=== PATIENT | male | born 1990 | race Hispanic/Latino ===

== ENCOUNTER 2023-03-01 00:32 | Emergency (ER) | payer OTHER ==
[~2023-03-01] VITALS: Ht 177.8 cm; Wt 84.4 kg
[2023-03-01 01:16] LABS: BASOPHILS % (AUTO) 0.4 % (0.0-5.0); EOSINOPHILS % (AUTO) 1.7 % (0.0-8.0); HEMATOCRIT 40.8 % (42-54); LYMPHOCYTES % (AUTO) 35.9 % (21.0-51.0); MEAN CORPUSCULAR HEMOGLOBIN 31.9 pg (27.0-33.0); MEAN CORPUSCULAR VOLUME 88.5 fL (79-99); MONOCYTES % (AUTO) 7.2 % (3.0-13.0); NEUTROPHILS % (AUTO) 54.4 % (40.0-77.0); PLATELET COUNT (AUTO) 229 K/uL (130-400); RED BLOOD CELL COUNT(AUTO) 4.61 MIL/uL (4.50-6.20); RED CELL DISTRIBUTION WIDTH 11.4 % (11.0-15.5); WHITE BLOOD COUNT (AUTO) 8.5 K/uL (4.8-10.8)
[2023-03-01 01:24] LABS: POTASSIUM 3.5 mmol/L (3.5-5.1)
[2023-03-01 01:29] LABS: ALBUMIN 4.5 g/dL (3.5-5.0); TOTAL PROTEIN, SERUM 7.7 g/dL (6.0-8.3)
[2023-03-01] MEDS ORDERED: MORPHINE 4 MG SYG IVP ONE (01:30)
[2023-03-01] MEDS ORDERED: CEFTRIAXONE 1G VIAL 1 GM in 0.9%NACL 50ML 50 ML IV ONE (01:30)
[2023-03-01] MEDS ORDERED: ONDANSETRON 4MG INJ IVP ONE (01:30)
[2023-03-01] MEDS ORDERED: CEFTRIAXONE 1G VIAL ONE (01:33)
[2023-03-01 01:35] LABS: APPEARANCE,URINE CLEAR (CLEAR); BILIRUBIN,URINE NEGATIVE (NEGATIVE); COLOR,URINE COLORLESS (YELLOW); GLUCOSE, URINE (UA) NEGATIVE (NEGATIVE); KETONES,URINE NEGATIVE (NEGATIVE); LEUKOCYTE ESTERASE ,URINE NEGATIVE Leu/uL (NEGATIVE); NITRATE,URINE NEGATIVE (NEGATIVE); OCCULT BLOOD,URINE NEGATIVE (NEGATIVE); PROTEIN,URINE NEGATIVE (NEGATIVE); UROBILINOGEN,URINE 0.2 mg/dL (0.2-1.0)
[2023-03-01 01:45] LABS: PROTHROMBIN TIME 10.9 SEC (9.6-11.6)
[2023-03-01 01:46] LABS: PARTIAL THROMBOPLASTIN TIME 28.4 SEC (26.3-35.5)
[2023-03-01] MEDS ORDERED: IOHEXOL 350 MG/ML 100ML INFUS..BTL IV ONE (02:09)
[2023-03-01 03:03] VITALS: BP 108/74
[2023-03-01] MEDS ORDERED: HYDR25SU38 RC (03:04)
[2023-03-01] MEDS ORDERED: POLY17PO4 PO (03:04)
== END 2023-03-01 03:20 | disposition home or self-care (01) ==
LOC: EDH 00:32
DX: K64.8 Other hemorrhoids (principal); F17.200 Nicotine dependence, unspecified, uncomplicated
CPT/HCPCS: 99285; 74177; 96365; 96375; 82270; 80053; 83690; 85025; 85610; 85730; 86850; 86900; 86901; 81003; 36415; 93005; J0696 ×2; J2405; J2270; Q9967